=== PATIENT | female | born 1955 | race Caucasian/White ===

== ENCOUNTER 2016-12-03 14:31 | Emergency (ER) | payer OTHER ==
[~2016-12-03] VITALS: Ht 172.7 cm; Wt 66.7 kg
[2016-12-03] MEDS ORDERED: NKM (15:02)
--- NOTE | 2016-12-03 15:25 | Emergency Room Report ---
History of Present Illness General Chief Complaint: Animal Bite Source: Patient Present Illness HPI 61-year-old female presents emergency department complaining of By the progressive erythema and tenderness x2 days. Patient states she had some extra amoxicillin at home and she's been taking that however she has noticed that redness has become apparent and is now progressing. Patient reports 9/10 in severity pain about the area of the Bite. Patient states she's not she with her tetanus vaccination. She denies taking blood thinning medications. Patient denies history of immunocompromise. She denies fevers chills streaking of erythema up the arm, nausea or vomiting. Patient denies swollen tender lymph nodes. Denies CP, Palpitations, LOC, AMS, dizziness, Changes in Vision, Sensation, paresthesias, or a sudden severe headache. Allergies: Coded Allergies: No Known Allergies (Unverified , 12/03/16) Patient History Past Medical History: see triage record Past Surgical History: none Pertinent Family History: none Now: No Reviewed Nursing Documentation: PMH: Agreed, PSxH: Agreed Nursing Documentation-PMH Past Medical History: No History, Except For Hx Gastrointestinal Problems: Yes - Hernia, Hepatitis B/C Review of Systems All Other Systems: negative except mentioned in HPI Physical Exam Vital Signs Date Time Temp Pulse Resp B/P Pulse Ox O2 Delivery O2 Flow Rate FiO2 12/03/16 14:57 98.8 61 18 138/74 98 Room Air Sp02 EP Interpretation: reviewed, normal General Appearance: no apparent distress, alert, GCS 15, non-toxic Head: normocephalic, atraumatic Eyes: bilateral eye PERRL, bilateral eye normal inspection ENT: hearing grossly normal, normal pharynx, no angioedema, normal voice Neck: full range of motion, supple/symm/no masses Respiratory: chest non-tender, lungs clear, normal breath sounds, speaking full sentences Cardiovascular #1: regular rate, rhythm, no edema, normal capillary refill Cardiovascular #2: 2+ radial (R), 2+ radial (L) Rectal: deferred Musculoskeletal: back normal, gait/station normal, normal range of motion, inflammation - right hand about the distal wrist, fingers are not involved. , TTP Neurologic: alert, oriented x3, responsive, motor strength/tone normal, sensory intact, speech normal Psychiatric: judgement/insight normal, memory normal, mood/affect normal, no suicidal/homicidal ideation Skin: no rash, warm/dry, well hydrated, other - two puncture wounds to the right hand/wrist and two scratch/abrasions there is surrounding erythema that does not enter the forearm, there is no lymphangitis. TTP Lymphatic: no adenopathy Medical Decision Making PA Attestation Dr. Jenkins is my supervising Physician whom patient management has been discussed with. Diagnostic Impression: Primary Impression: Cat bite of right hand with infection Qualified Codes: S61.451A - Open bite of right hand, initial encounter; L08.9 - Local infection of the skin and subcutaneous tissue, unspecified; W55.01XA - Bitten by cat, initial encounter Additional Impression: Cellulitis Qualified Codes: L03.113 - Cellulitis of right upper limb ER Course Pt. presents to the ED c/o Cat bite to Right hand/wrist x 3 days with progressive erythema and TTP. tetanus not up to date, rabies on animal is UTD Ddx considered but are not limited to Cellulitis, rabies, fracture, neurovascular compromise of extremity. Vital signs: are WNL, pt. is afebrile H&PE are most consistent with dog bite, mild infection.- no evidence of lymphangitis. ORDERS: none required at this time, the diagnosis is clinical ED INTERVENTIONS: -Tetanus vaccination is administered. -Augmentin 875 PO -Motrin 600mg PO - Report taken by RN for animal bite. DISCHARGE: At this time pt. is stable for d/c to home. Will provide printed patient care instructions, and any necessary prescriptions. Care plan and follow up instructions have been discussed with the patient prior to discharge. * Augmentin Last Vital Signs Date Time Temp Pulse Resp B/P Pulse Ox O2 Delivery O2 Flow Rate FiO2 12/03/16 14:57 98.8 61 18 138/74 98 Room Air Disposition: HOME, SELF-CARE Condition: Stable Scripts Ibuprofen* (MOTRIN*) 600 Mg Tablet 600 MG ORAL THREE TIMES A DAY, #30 TAB 0 Refills Prov: Miriam Mitchell P.A. 12/03/16 Hydrocodone Bit/Acetaminophen 5-325* (NORCO 5-325 TABLET*) 1 Each Tablet 1 TAB ORAL Q6HR Y for For Pain, #4 TAB Prov: Miriam Mitchell P.A. 12/03/16 Amoxicillin/Potassium Clav 875-125* (AUGMENTIN 875-125 TABLET*) 1 Each Tablet 1 TAB ORAL TWICE A DAY for 7 Days, #14 TAB Prov: Miriam Mitchell 12/03/16 Patient Instructions: Animal Bite Additional Instructions: Take medications as directed. Follow up with PCP in 3-5 days Return sooner to ED if new symptoms occur, or current symptoms become worse. Do not drink alcohol, drive, or operate heavy machinery while taking [place] as this may cause drowsiness. - Please note that this Emergency Department Report was dictated using markedupreal estate assessor technology software, occasionally this can lead to erroneous entry secondary to interpretation by the dictation equipment. Miriam Mitchell Dec 03, 2016 15:25
[2016-12-03] MEDS ORDERED: AUGMENTIN 875-1 EAC1 ORAL (15:26)
[2016-12-03] MEDS ORDERED: NORCO 5-325 TA1 EAC1 ORAL (15:26)
[2016-12-03] MEDS ORDERED: IBUPROFEN600 MG ORAL (15:26)
[2016-12-03] MEDS ORDERED: Augmentin 875mg Tab ORAL ONE (15:30)
[2016-12-03] MEDS ORDERED: TdaP Vaccine 0.5ml Syr IM ONE (15:30)
[2016-12-03 15:36] VITALS: BP 129/79
== END 2016-12-03 15:39 | disposition home or self-care (01) ==
LOC: EMR 15:09
DX: S61.451A Open bite of right hand, initial encounter (principal); L03.113 Cellulitis of right upper limb; W55.01XA Bitten by cat, initial encounter; Y92.89 Other specified places as the place of occurrence of the external cause; Z23 Encounter for immunization
CPT/HCPCS: 90471; 90715; 96372; 99284

== ENCOUNTER 2016-12-14 16:25 | Inpatient (IN) | payer OTHER ==
[2016-12-14] VITALS (10 sets, daily range): BP systolic 109–155; BP diastolic 61–81
[~2016-12-14] VITALS: Ht 162.6 cm; Wt 66.7 kg
[~2016-12-14 16:25] MED LIST: AUGMENTIN 875-1 EAC1 ORAL; IBUPROFEN600 MG ORAL; NKM; NORCO 5-325 TA1 EAC1 ORAL
--- NOTE | 2016-12-14 17:38 | Emergency Room Report ---
History of Present Illness General Chief Complaint: Abdominal Pain Source: Patient Present Illness HPI This is a 61-year-old female who presented after increased lower abdominal pain. Patient had prior history of the right abdominal hernia. Patient states that her knee had become more prominent today. She reported having some episodes of vomiting. She was noted to have increased pain. Patient had been vomiting. She had recently been bitten by a feral cat to left hand. Allergies: Coded Allergies: No Known Allergies (Unverified , 12/03/16) Patient History Past Medical History: see triage record Past Surgical History: hysterectomy, other - rectal prolapse repair at [facility] Reviewed Nursing Documentation: PMH: Agreed, PSxH: Agreed Nursing Documentation-PMH Past Medical History: No History, Except For Hx Gastrointestinal Problems: Yes - Hernia, Hepatitis B/C, bowel dysfunction Review of Systems All Other Systems: negative except mentioned in HPI Physical Exam Vital Signs Date Time Temp Pulse Resp B/P Pulse Ox O2 Delivery O2 Flow Rate FiO2 12/14/16 16:32 96.1 50 20 174/73 99 Room Air Sp02 EP Interpretation: reviewed, normal General Appearance: normal inspection, alert, GCS 15, moderate distress, thin Head: atraumatic ENT: normal ENT inspection, hearing grossly normal, normal voice Neck: normal inspection, full range of motion, supple, no bony tend Respiratory: normal inspection, lungs clear, normal breath sounds, no respiratory distress, no retraction, no wheezing Cardiovascular #1: regular rate, rhythm, no edema Gastrointestinal: normal bowel sounds, non tender, soft, no guarding, hernia - right lower abdomen Genitourinary: no CVA tenderness Musculoskeletal: normal inspection, back normal, normal range of motion Neurologic: normal inspection, alert, oriented x3, responsive, automatic profile sander operator III-XII nml as tested, speech normal Psychiatric: normal inspection, judgement/insight normal, mood/affect normal Skin: normal inspection, normal color, no rash, other - multiple puncture wound to finger of left hand Medical Decision Making Diagnostic Impression: Primary Impression: Incarcerated hernia Additional Impression: Cat bite of hand ER Course Patient presented for abdominal pain. Differential diagnoses included ischemic bowel, appendicitis, perforated viscus, abdominal aortic aneurysm, inferior myocardial infarction, viral gastroenteritis Because of complexity of patient's case laboratory testing and imaging studies were ordered.The patient was given IV antiemetics she started on IV fluids. CT abdomen pelvis read by radiology showed right inguinal hernia with bowel obstruction and loop of bowel in the right inguinal hernia which has some fluid- filled bowel . She was given antibiotics for coverage for recent cat bite to her left hand. Attempted manual reduction of the hernia without success. The patient was given morphine for pain as well as Zofran. She was given IV Unasyn. Dr. Mendes was contacted for surgical consult. Dr. Gonzalo Cancino was contacted for inpatient management. The patient will likely need antibiotics for Bite in addition to management of hernia. Labs Test 12/14/16 17:00 White Blood Count 10.7 K/UL (4.8-10.8) Red Blood Count 3.99 M/UL (4.20-5.40) Hemoglobin 13.7 G/DL (12.0-16.0) Hematocrit 39.4 % (37.0-47.0) Mean Corpuscular Volume 99 FL (80-99) Mean Corpuscular Hemoglobin 34.4 PG (27.0-31.0) Mean Corpuscular Hemoglobin Concent 34.8 G/DL (32.0-36.0) Red Cell Distribution Width 12.5 % (11.6-14.8) Platelet Count 265 K/UL (150-450) Mean Platelet Volume 7.6 FL (6.5-10.1) Neutrophils (%) (Auto) 69.9 % (45.0-75.0) Lymphocytes (%) (Auto) 21.5 % (20.0-45.0) Monocytes (%) (Auto) 6.5 % (1.0-10.0) Eosinophils (%) (Auto) 0.7 % (0.0-3.0) Basophils (%) (Auto) 1.4 % (0.0-2.0) Prothrombin Time 10.7 SEC (9.30-11.50) Prothromb Time International Ratio 1.1 (0.9-1.1) Activated Partial Thromboplast Time 25 SEC (23-33) Sodium Level 140 mEQ/L (135-145) Potassium Level 3.8 mEQ/L (3.4-4.9) Chloride Level 100 mEQ/L (98-107) Carbon Dioxide Level 22 mEQ/L (20-30) Anion Gap 18 (5-15) Blood Urea Nitrogen 7 mg/dL (7-23) Creatinine 0.6 mg/dL (0.5-0.9) Estimat Glomerular Filtration Rate > 60 mL/min (>60) Glucose Level 137 mg/dL (74-106) Calcium Level 9.6 mg/dL (8.6-10.2) Total Bilirubin 0.2 mg/dL (0.0-1.2) Aspartate Amino Transf (AST/SGOT) 17 U/L (5-40) Alanine Aminotransferase (ALT/SGPT) 12 U/L (3-33) Alkaline Phosphatase 62 U/L (35-104) Total Protein 7.1 g/dL (6.6-8.7) Albumin 4.0 g/dL (3.5-5.2) Globulin 3.1 g/dL Albumin/Globulin Ratio 1.2 (1.0-2.7) Lipase 12 U/L (< 60) EKG Diagnostic Results Rate: bradycardiac Rhythm: NSR ST Segments: other - s Rhythm Strip Diag. Results EP Interpretation: yes Rhythm: NSR, no PVC's, no ectopy Last Vital Signs Date Time Temp Pulse Resp B/P Pulse Ox O2 Delivery O2 Flow Rate FiO2 12/14/16 16:32 96.1 50 20 174/73 99 Room Air Status: unchanged Disposition: ADMITTED INPATIENT Condition: Serious Santiago Baker December 14, 2016 17:38
[2016-12-14] MEDS ORDERED: Famotidine 20 MG/ 2ML VIAL IVP ONE (17:45)
[2016-12-14] MEDS ORDERED: Ampicillin/Sulbactam Sod 3 GM in NS 110 ML IVPB ONE (17:45)
[2016-12-14 17:49] LABS: BASOPHILS % (AUTO) 1.4 % (0.0-2.0); EOSINOPHILS % (AUTO) 0.7 % (0.0-3.0); LYMPHOCYTES % (AUTO) 21.5 % (20.0-45.0); MEAN CORPUSCULAR HEMOGLOBIN 34.4 PG (27.0-31.0); MEAN CORPUSCULAR HGB CONC 34.8 G/DL (32.0-36.0); MEAN CORPUSCULAR VOLUME 99 FL (80-99); MEAN PLATELET VOLUME 7.6 FL (6.5-10.1); MONOCYTES % (AUTO) 6.5 % (1.0-10.0); NEUTROPHILS % (AUTO) 69.9 % (45.0-75.0); PLATELET COUNT 265 K/UL (150-450); RED BLOOD COUNT 3.99 M/UL (4.20-5.40); RED CELL DISTRIBUTION WIDTH 12.5 % (11.6-14.8); WHITE BLOOD COUNT 10.7 K/UL (4.8-10.8)
[2016-12-14] MEDS ORDERED: Unasyn 3gm Inj ONE (17:51)
[2016-12-14 17:57] LABS: INR 1.1 (0.9-1.1); PROTHROMBIN TIME 10.7 SEC (9.30-11.50)
[2016-12-14] MEDS ORDERED: Morphine Sulfate 4mg/ml Inj IVP ONE (18:00)
[2016-12-14 18:06] LABS: ALANINE AMINOTRANSFERASE 12 U/L (3-33); ALBUMIN/GLOBULIN RATIO 1.2 (1.0-2.7); ANION GAP 18 (5-15); ASPARTATE AMINO TRANSFERASE 17 U/L (5-40); CALCIUM 9.6 mg/dL (8.6-10.2); CARBON DIOXIDE 22 mEQ/L (20-30); CHLORIDE 100 mEQ/L (98-107); CREATININE 0.6 mg/dL (0.5-0.9); GLOMERULAR FILTRATION RATE > 60 mL/min (>60); HEMOLYSIS 8; LIPASE 12 U/L (< 60); POTASSIUM 3.8 mEQ/L (3.4-4.9); SODIUM 140 mEQ/L (135-145); TOTAL PROTEIN 7.1 g/dL (6.6-8.7)
[2016-12-14 20:01] LABS: APPEARANCE,URINE CLEAR; KETONES,URINE 3+ (NEGATIVE); LEUKOCYTE ESTERASE ,URINE NEGATIVE (NEGATIVE); NITRITE,URINE NEGATIVE (NEGATIVE); PH,URINE 7 (4.5-8.0); PROTEIN,URINE NEGATIVE (NEGATIVE); UROBILINOGEN,URINE NORMAL MG/DL (0.0-1.0)
--- NOTE | 2016-12-14 20:56 | Pre-Procedure Note/Attestation ---
Pre-Procedure Note/Attestation Complete Prior to Procedure Planned Procedure: right Procedure Narrative: Right inguinal herniorrhaphy and release of strangulation Indications for Procedure Pre-Operative Diagnosis: Strangulated right inguinal hernia with bowel obstruction Attestation I attest that I discussed the nature of the procedure; its benefits; risks and complications; and alternatives (and the risks and benefits of such alternatives ), prior to the procedure, with the patient (or the patient's legal retail account representative). I attest that, if there was a reasonable possibility of needing a blood transfusion, the patient (or the patient's legal retail account representative) was given the [place] Department of Health Services standardized written summary, pursuant to the Raimundo Notus Blood Safety Act ([place] Health and Safety Code # 1645, as amended). I attest that I re-evaluated the patient just prior to the surgery and that there has been no change in the patient's H&P, except as documented below: TONY STANLEY December 14, 2016 20:56
[2016-12-14] MEDS ORDERED: Sterile Water Irrig 1000ml IRRIG ONE (21:00)
[2016-12-14] MEDS ORDERED: Midazolam 2mg/2ml Inj ONE (21:00)
[2016-12-14] MEDS ORDERED: Zemuron 50mg/5ml Inj IV ONE (21:00)
[2016-12-14] MEDS ORDERED: Glycopyrrolate 0.2mg/ml 1ml Vial ONE (21:00)
[2016-12-14] MEDS ORDERED: Ketorolac 30mg Inj ONE (21:00)
[2016-12-14] MEDS ORDERED: NS Irrig 1000ml ONE (21:00)
[2016-12-14] MEDS ORDERED: LR 1000ml ONE (21:00)
[2016-12-14] MEDS ORDERED: Neostigmine 1mg/ml 10ml Inj ONE (21:00)
[2016-12-14] MEDS ORDERED: Succinylcholine 20mg/ml 10ml vial ONE (21:00)
[2016-12-14] MEDS ORDERED: fentaNYL 100 mcg/2 mL IV ONE (21:00)
[2016-12-14] MEDS ORDERED: Propofol 10mg/ml 20ml IV ONE (21:00)
[2016-12-14] MEDS ORDERED: Bupivacaine 0.25% Inj 30ml INJ ONE (21:32)
--- NOTE | 2016-12-14 21:51 | Anethesia Preoperative Eval ---
Anesthesia Pre-op PMH/ROS General Date of Evaluation: December 14, 2016 Time of Evaluation: 20:52 Anesthesiologist: Arnulfo ASA Score: ASA 2 Mallampati Score Class I : Soft palate, uvula, fauces, pillars visible Class II: Soft palate, uvula, fauces visible Class III: Soft palate, base of uvula visible Class IV: Only hard plate visible Mallampati Classification: Class II Surgeon: Cinthya Diagnosis: R incarcerated hernia Surgical Procedure: Repair of incarcerated hernia Anesthesia History: none Social History: current smoker Family History: no anesthesia problems Allergies: Coded Allergies: No Known Allergies (Unverified , 12/03/16) Medications: see eMAR Past Medical History Cardiovascular: Reports: HTN, Denies: CAD, DC, arrhythmia, other, valve dz Pulmonary: 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, Denies: CASSANDRA, asthma, other Gastrointestinal/Genitourinary: Reports: GERD, Denies: CRI, ESRD, other Neurologic/Psychiatric: Denies: CVA, TIA, dementia, depression/anxiety, other Endocrine: Denies: DM, hypothyroidism, other, steroids HEENT: Denies: [place] (L), [place] (R), cataract (L), cataract (R), glaucoma, other Hematology/Immune: Denies: DVT, anemia, bleeding disorder, other Musculoskeletal/Integumentary: Reports: DJD, Denies: DDD, OA, RA, edema, other PMH Narrative: as above admitted with acute abdominal pain vomiting PSxH Narrative: hysterectomy, rectal prolapse Anesthesia Pre-op Phys. Exam Physician Exam Last Vital Signs Date Time Temp Pulse Resp B/P Pulse Ox O2 Delivery O2 Flow Rate FiO2 12/14/16 21:09 97.0 54 14 151/79 99 Room Air Constitutional: NAD Neurologic: CN 2-12 intact Cardiovascular: RRR, no M/R/G Respiratory: CTA Gastrointestinal: other - some tenderness Airway Exam Mallampati Score: Class II MO: full Neck: flexible ROM: full Teeth: missing Dentures: lower, upper Anesthesia Pre-op A/P Labs Hematology Test 12/14/16 17:00 White Blood Count 10.7 K/UL (4.8-10.8) Red Blood Count 3.99 M/UL (4.20-5.40) L Hemoglobin 13.7 G/DL (12.0-16.0) Hematocrit 39.4 % (37.0-47.0) Mean Corpuscular Volume 99 FL (80-99) Mean Corpuscular Hemoglobin 34.4 PG (27.0-31.0) H Mean Corpuscular Hemoglobin Concent 34.8 G/DL (32.0-36.0) Red Cell Distribution Width 12.5 % (11.6-14.8) Platelet Count 265 K/UL (150-450) Mean Platelet Volume 7.6 FL (6.5-10.1) Neutrophils (%) (Auto) 69.9 % (45.0-75.0) Lymphocytes (%) (Auto) 21.5 % (20.0-45.0) Monocytes (%) (Auto) 6.5 % (1.0-10.0) Eosinophils (%) (Auto) 0.7 % (0.0-3.0) Basophils (%) (Auto) 1.4 % (0.0-2.0) Coagulation Test 12/14/16 17:00 Prothrombin Time 10.7 SEC (9.30-11.50) Prothromb Time International Ratio 1.1 (0.9-1.1) Activated Partial Thromboplast Time 25 SEC (23-33) Chemistry Test 12/14/16 17:00 Sodium Level 140 mEQ/L (135-145) Potassium Level 3.8 mEQ/L (3.4-4.9) Chloride Level 100 mEQ/L (98-107) Carbon Dioxide Level 22 mEQ/L (20-30) Anion Gap 18 (5-15) H Blood Urea Nitrogen 7 mg/dL (7-23) Creatinine 0.6 mg/dL (0.5-0.9) Estimat Glomerular Filtration Rate > 60 mL/min (>60) Glucose Level 137 mg/dL (74-106) H Calcium Level 9.6 mg/dL (8.6-10.2) Total Bilirubin 0.2 mg/dL (0.0-1.2) Aspartate Amino Transf (AST/SGOT) 17 U/L (5-40) Alanine Aminotransferase (ALT/SGPT) 12 U/L (3-33) Alkaline Phosphatase 62 U/L (35-104) Total Protein 7.1 g/dL (6.6-8.7) Albumin 4.0 g/dL (3.5-5.2) Globulin 3.1 g/dL Albumin/Globulin Ratio 1.2 (1.0-2.7) Lipase 12 U/L (< 60) Studies Pre-op Studies: EKG - NSR Risk Assessment & Plan Assessment: ASA 2E Plan: GA with ETT Status Change Before Surgery: No Pre-Antibiotics Drug: As scheduled see ER record SUZE AVERY M.D. December 14, 2016 21:51
[2016-12-14] MEDS ORDERED: LR 1000ml 1,000 ML IVLG SCH (21:52)
[2016-12-14] MEDS ORDERED: DiphenhydrAMINE 50mg/ml Inj IVP PRN (22:00)
[2016-12-14] MEDS ORDERED: Hydromorphone 0.5mg/0.5ml inj IVP PRN ×2 (22:00→22:45)
[2016-12-14] MEDS ORDERED: fentaNYL 100 mcg/2 mL IV PRN (22:00)
[2016-12-14] MEDS ORDERED: Ketorolac 30mg Inj IV PRN (22:00)
[2016-12-14] MEDS ORDERED: Midazolam 2mg/2ml Inj IVP PRN (22:00)
--- NOTE | 2016-12-14 22:22 | Immediate Post-Op Evaluation ---
Immediate Post-Op Evalulation Immediate Post-Op Evalulation Procedure: Repair of R incarcerated femoral Hernia Date of Evaluation: December 14, 2016 Time of Evaluation: 22:21 IV Fluids: 800 Blood Products: none Estimated Blood Loss: min Urinary Output: 600 Blood Pressure Systolic: 134 Blood Pressure Diastolic: 68 Pulse Rate: 68 Respiratory Rate: 20 O2 Sat by Pulse Oximetry: 98 Temperature (Fahrenheit): 97.6 Pain Score (1-10): 2 Nausea: No Vomiting: No Complications none Patient Status: reacts, patent, extubated, none Hydration Status: adequate SUZE AVERY M.D. December 14, 2016 22:22
[2016-12-14] MEDS ORDERED: Acetaminophen 650 MG SUPP RECTAL PRN (22:45)
[2016-12-14] MEDS ORDERED: HYDROmorphone 1mg/ml Carpuject IVP PRN (22:45)
[2016-12-15] VITALS: BP 124/67
[2016-12-15] MEDS: D5 1/2NS w/KCl 20mEq 1,000 ML IV SCH ×2 (01:58→10:54)
[2016-12-15] MEDS ORDERED: ZYRTEC10 MG ORAL (02:30)
[2016-12-15] MEDS ORDERED: OMEPRAZOLE40 M1 ORAL (02:30)
[2016-12-15] MEDS ORDERED: NAPROXEN SODIU550 M1 ORAL (02:30)
--- NOTE | 2016-12-15 02:59 | Consultation ---
DATE OF CONSULTATION: 12/14/2016 PREOPERATIVE CONSULTATION REQUESTING PHYSICIAN: ER physician. REASON FOR CONSULTATION: Strangulated hernia. History Of Present Illness: This is a 61-year-old female, who presented to emergency room complaining of pain in the right groin and vomiting. She stated that she had right inguinal hernia since October 2006, but today at 2:30 in the afternoon, the lump has been very hard and painful and he has vomited a few times. She has had a normal bowel movement this morning. PAST MEDICAL HISTORY: She denies allergies, asthma, diabetes, hypertension, and renal diseases. She has a history of bradycardia. PAST SURGICAL HISTORY: Repair of the rectal prolapse, hysterectomy and batcher operator surgery. MEDICATIONS: She is on naproxen and proton pump inhibitor. SOCIAL HISTORY: The patient is a 61-year-old female, single without children. 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 She smokes about three-quarter to one pack of cigarettes per day, but denies drinking. REVIEW OF SYSTEMS: Noncontributory. PHYSICAL EXAMINATION: GENERAL: The patient appeared to be a well-developed and well-nourished 61-year-old female, lying on the gurney, complaining of pain in the right groin, but not abdominal pain. HEENT: Head is normocephalic and atraumatic. Eyes, pupils are equal, round, and reactive to light. Mouth is clear, but edentulous. NECK: There is no palpable thyromegaly or adenopathy. CHEST: Clear to auscultation and percussion. HEART: There is no gallop or murmur. S1 and S2 are within normal limits. ABDOMEN: Soft and flat. Not tender. There is no palpable organomegaly and bowel sounds are audible. GENITAL: She has a scar of the transverse suprapubic incision. She has an irreducible and tender right inguinal hernia. EXTREMITIES: Within normal limits. LABORATORY AND DIAGNOSTIC DATA: A CAT scan of the abdomen has been interpreted as a hernia with bowel obstruction. ASSESSMENT: Incarcerated right inguinal hernia with bowel obstruction. PLAN: The patient requires emergency right inguinal herniorrhaphy. The risks and benefits have been explained to her. She understood and granted consent. Miguel Angel Mendes M.D. DR: ERIN JOB#: [id number] CC:
[2016-12-15 04:10] VITALS: BP 103/56
[2016-12-15] MEDS: ceFAZolin sod 1 GM in D5W 55 ML IV SCH ×2 (06:25→14:00)
[2016-12-15] MEDS: Metoclopramide 10mg/2ml Inj IVP SCH ×2 (06:27→14:00)
[2016-12-15 08:08] VITALS: BP 100/55
--- NOTE | 2016-12-15 08:19 | Operative Note - Dictated ---
DATE OF OPERATION: 12/14/2016 PREOPERATIVE DIAGNOSIS: Strangulated right inguinal hernia. POSTOPERATIVE DIAGNOSIS: Strangulated right femoral hernia. OPERATION: 1. Release of strangulation. 2. Right femoral herniorrhaphy with application of mesh plug. 3. Blockage of the nerves to the right groin for the postoperative pain control. COMPLICATION: None. SURGEON: Miguel Angel Mendes M.D. RESEARCH SOFTWARE ENGINEER: None. ANESTHESIA: General with endotracheal tube. ANESTHESIOLOGIST: Rajesh Arredondo M.D. Indication: This is a 61-year-old female, who presented with pain and lump in the right groin. She stated that she has had a hernia in the right groin since 10/2016, but since 2:30 today the lump has been enlarged, hard and painful and she has been vomiting. Physical examination showed irreducible and tender hernia in the right groin, which initially it was felt that was above the inguinal ligament, but during the surgery it was noticed that it was below the inguinal ligament. This hernia was irreducible and tender. A CAT scan has been performed, which has shown small bowel obstruction. DESCRIPTION OF PROCEDURE: The patient was placed supine on the operating table. After general anesthesia with endotracheal tube, the right groin was properly prepped and draped. A transverse inguinal incision was given and was carried sharply through the subcutaneous tissue. The hernia sac was reached and was gradually dissected and isolated. It was noticed that the sac was protruding below the inguinal ligament and through the femoral canal. The hernia sac was incised and a large amount of bloody fluid was drained. Exploration showed a small loop of the small bowel, which was very dusky. Initially, the neck of the hernia was dilated with the incision of the ring at the medial side and the bowel was packed in the warm water and gradually the color changed to pink and so it was gradually reduced into the intraperitoneal cavity and the hernia defect was exposed. The hernia sac was completely dissected and isolated and then it was transligated with 0 silk. The large mesh plug was selected and was placed in the femoral condyle. This plug was secured in place with multiple interrupted suture of 2-0 Prolene. A suture was not placed on the lateral side of the condyle. After the application of the plug and incision was thoroughly irrigated with antibiotic solution and then it was infiltrated with total of 20 mL of Marcaine 0.25%. The nerves to the right groin were blocked with infiltration of 10 mL of Marcaine for the postoperative pain control port. After this repair, the subcutaneous tissue was approximated in 2 layers with 3-0 plain catgut and the skin incision was approximated with running subcuticular suture of 4-0 chromic. The patient tolerated the procedure very well and was transferred to recovery room in stable condition and extubated. The sponge and needle count were correct. Estimated blood loss was 20 mL. Condition of the patient at the end of the procedure is stable. Miguel Angel Mendes M.D. DR: MIESHA JOB#: [id number] CC:
--- NOTE | 2016-12-15 11:22 | 48 Hour Post Anesthesia Eval ---
Post Anesthesia Evaluation Procedure: Repair of R incarcerated femoral Hernia Date of Evaluation: December 15, 2016 Time of Evaluation: 11:21 Blood Pressure Systolic: 100 0: 55 Pulse Rate: 49 Respiratory Rate: 20 Temperature (Fahrenheit): 98.4 O2 Sat by Pulse Oximetry: 97 Airway: patent Nausea: No Vomiting: No Pain Intensity: 1 Hydration Status: adequate Cardiopulmonary Status: at baseline Mental Status/LOC: patient returned to baseline Post-Anesthesia Complications: 0 Follow-up care needed: N/A - further care as per primary team LASHONDA REDDY M.D. December 15, 2016 11:22
--- NOTE | 2016-12-15 11:53 | Diagnostic Imaging Report ---
Indications: Right lower quadrant abdominal pain, nausea and vomiting, history of hernia Technique: Continuous helical CT imaging of the abdomen and pelvis was performed with automatic exposure control following administration of nonionic IV contrast only, on a Siemens sensation [address] scanner. Axial and coronal images were reconstructed at 5 mm slice thickness. No oral contrast was administered per requesting physician's order, presumably due to nausea and vomiting. CTDI volume(s): 16 mGy Total DLP: 803 mGy-cm Findings: Comparison: None Large hiatal hernia. Mid to distal small bowel diffusely dilated and fluid-filled air-fluid levels to point of entry of small bowel loops into right inguinal hernia. Incorporated loops of fluid-filled without obvious mural thickening, but with adjacent fluid. Small bowel from the point of exit distally collapsed. Appendix not identified. Gas and feces throughout nondilated colon to rectum. No obvious mural thickening, adjacent stranding, extraluminal gas or additional fluid collections. Periportal low attenuation throughout liver. 2 small nodular foci of increased attenuation/enhancement in right hepatic lobe, segments 7 and 8 respectively. Questionable third similar focus in segment2. Inferior vena cava, hepatic veins distended. Suggestion of dilation of the main pancreatic duct. No associated stone or mass identified. 5 cm circumscribed low-attenuation mass emanates exophytically from the interpolar cortex of left kidney. Scattered arterial mural calcifications without obvious flow-limiting stenosis or occlusion. Uterus absent. Neither ovary demonstrated. Urinary bladder distended. Remainder visualized abdominopelvic anatomy demonstrates no other obvious acute abnormality. Increased interstitial markings in both lung bases. 4 and 5 mm pleural-based noncalcified nodules in the lateral basal segment of right pulmonary lower lobe. 7 mm noncalcified nodule in the posterior basal segment left lower lobe. 7 mm noncalcified nodule in the anterior basal segment of left lower lobe. 6 mm noncalcified nodule lateral basal segment left lower lobe. Multilevel disc space narrowing with marginal osteophyte formation lumbar, lower thoracic spine, former with vacuum phenomenon. Impression: Small bowel obstruction secondary to incorporation of small bowel and right inguinal hernia, indicating incarceration. Free fluid in the hernia sac suggesting possibility of early strangulation. Periportal edema, nonspecific, may be secondary to elevated right heart pressure (evidence of this) or acute hepatitis No other evidence of acute abdominopelvic disease Nonspecific small mildly enhancing liver lesions. Diagnostic possibilities include transient arterial portal shunting, focal nodular hyperplasia, hemangiomas, adenomas, metastases. Dedicated multiphasic CT scan or MRI without and with contrast/gadolinium, liver mass protocol, recommended for further evaluation. Large hiatal hernia Left renal cyst Arteriosclerosis Previous hysterectomy Urinary bladder distention Bilateral lung base nodules--granulomatous versus neoplastic. Dedicated contrast-enhanced CT scan the thorax recommended for completion of evaluation. Degenerative spondylosis Critical results discussed with Dr. Baker, ER physician, by telephone 12/14/2016 approximately 1938
[2016-12-15 12:00] VITALS: BP 100/55
--- NOTE | 2016-12-15 13:13 | General Surgery Progress Note ---
General Surgery-Progress Note Subjective Symptoms: improved, passing flatus Objective Last 24 Hour Vital Signs Date Time Temp Pulse Resp B/P Pulse Ox O2 Delivery O2 Flow Rate FiO2 12/15/16 12:00 98.2 47 20 100/55 Nasal Cannula 12/15/16 11:22 49 20 97 12/15/16 08:08 98.4 49 20 100/55 97 Nasal Cannula 12/15/16 06:27 98.2 12/15/16 04:10 98.2 42 19 103/56 97 Nasal Cannula 12/15/16 00:00 99.0 46 19 124/67 96 Nasal Cannula 12/14/16 23:58 99.0 12/14/16 23:09 99.0 43 20 137/64 100 Nasal Cannula 2.0 12/14/16 23:03 99.0 45 20 137/64 100 Nasal Cannula 2.0 12/14/16 22:52 67 20 130/65 100 Nasal Cannula 2.0 12/14/16 22:41 48 20 130/65 100 Nasal Cannula 2.0 12/14/16 22:25 47 20 117/81 100 Nasal Cannula 2.0 12/14/16 22:22 68 20 98 12/14/16 22:21 57 20 109/61 100 Simple Mask 8.0 12/14/16 22:16 98.1 67 20 130/64 100 Simple Mask 8.0 12/14/16 21:09 97.0 54 14 151/79 99 Room Air 12/14/16 20:30 97.0 54 14 151/79 99 Room Air 12/14/16 19:10 44 19 145/71 12/14/16 18:00 50 18 155/71 98 Room Air 12/14/16 16:32 96.1 50 20 174/73 99 Room Air I&O Intake and Output 12/14/16 12/15/16 19:00 07:00 Intake Total 800 ml Output Total 800 ml Balance 0 ml Intake IV Total 800 ml Output Urine Total 800 ml # Voids 2 Dressing: dry Respiratory: clear Abdomen: soft, flat, non-tender, present bowel sounds Extremities: no edema, no tenderness Laboratory Tests Test 12/14/16 17:00 12/14/16 19:10 White Blood Count 10.7 K/UL (4.8-10.8) Red Blood Count 3.99 M/UL (4.20-5.40) L Hemoglobin 13.7 G/DL (12.0-16.0) Hematocrit 39.4 % (37.0-47.0) Mean Corpuscular Volume 99 FL (80-99) Mean Corpuscular Hemoglobin 34.4 PG (27.0-31.0) H Mean Corpuscular Hemoglobin Concent 34.8 G/DL (32.0-36.0) Red Cell Distribution Width 12.5 % (11.6-14.8) Platelet Count 265 K/UL (150-450) Mean Platelet Volume 7.6 FL (6.5-10.1) Neutrophils (%) (Auto) 69.9 % (45.0-75.0) Lymphocytes (%) (Auto) 21.5 % (20.0-45.0) Monocytes (%) (Auto) 6.5 % (1.0-10.0) Eosinophils (%) (Auto) 0.7 % (0.0-3.0) Basophils (%) (Auto) 1.4 % (0.0-2.0) Prothrombin Time 10.7 SEC (9.30-11.50) Prothromb Time International Ratio 1.1 (0.9-1.1) Activated Partial Thromboplast Time 25 SEC (23-33) Sodium Level 140 mEQ/L (135-145) Potassium Level 3.8 mEQ/L (3.4-4.9) Chloride Level 100 mEQ/L (98-107) Carbon Dioxide Level 22 mEQ/L (20-30) Anion Gap 18 (5-15) H Blood Urea Nitrogen 7 mg/dL (7-23) Creatinine 0.6 mg/dL (0.5-0.9) Estimat Glomerular Filtration Rate > 60 mL/min (>60) Glucose Level 137 mg/dL (74-106) H Calcium Level 9.6 mg/dL (8.6-10.2) Total Bilirubin 0.2 mg/dL (0.0-1.2) Aspartate Amino Transf (AST/SGOT) 17 U/L (5-40) Alanine Aminotransferase (ALT/SGPT) 12 U/L (3-33) Alkaline Phosphatase 62 U/L (35-104) Total Protein 7.1 g/dL (6.6-8.7) Albumin 4.0 g/dL (3.5-5.2) Globulin 3.1 g/dL Albumin/Globulin Ratio 1.2 (1.0-2.7) Lipase 12 U/L (< 60) Urine Color Pale yellow Urine Appearance Clear Urine pH 7 (4.5-8.0) Urine Specific Garvin 1.005 (1.005-1.035) Urine Protein Negative (NEGATIVE) Urine Glucose (UA) Negative (NEGATIVE) Urine Ketones 3+ (NEGATIVE) H Urine Occult Blood Negative (NEGATIVE) Urine Nitrite Negative (NEGATIVE) Urine Bilirubin Negative (NEGATIVE) Urine Urobilinogen Normal MG/DL (0.0-1.0) Urine Leukocyte Esterase Negative (NEGATIVE) Assessment Additional Comments S/P strangulated right femoral hernia with bowel obstruction Plan Additional Comments Discharge to home TONY STANLEY December 15, 2016 13:13
--- NOTE | 2016-12-15 13:15 | Discharge Instructions ---
Discharge Instructions Discharge Instructions Follow up with: my office in one week Diet: regular Resume Normal Activity?: Yes Activity: as tolerated For Surgical Patients Clean and Dry: other - will be removed by surgeon May shower: Yes For Congestive Heart Failure Reminder Report to your physician any weight gain of 5 pounds or more in one week. TONY STANLEY December 15, 2016 13:15
[2016-12-15] MEDS ORDERED: PERI-COLACE TA1 EACH PO (13:54)
[2016-12-15] MEDS ORDERED: TRAMADOL HCL50 MG ORAL (13:54)
[2016-12-15] MEDS ORDERED: CEPHALEXIN500 MG ORAL (13:54)
--- NOTE | 2016-12-15 19:00 | Cardiology Report ---
APPROVED REPORT EKG Measurement Heart [id number] Sinus bradycardia with premature supraventricular complexes Incomplete right bundle branch block Borderline ECG
--- NOTE | 2016-12-16 08:34 | Discharge Summary ---
Discharge Summary Hospital Course Date of Admission December 14, 2016 at 20:52 Date of Discharge December 15, 2016 at 14:17 Admitting Diagnosis incarcerated hernia HPI Misti Interiano is a 61 year old female who was admitted on December 14, 2016 at 20: 52 for Incarcerated Hernia Hospital Course dc summary #[id number] Discharge Medications Continued Medications: Cephalexin* (Keflex*) 500 Mg Capsule 500 MG ORAL EVERY 6 HOURS, #20 CAP Sennosides/Docusate Sodium (Raisa-Colace Tablet) 1 Each Tablet 1 EACH PO TID, TAB Tramadol Hcl* (Ultram*) 50 Mg Tablet 50 MG ORAL Q6H PRN for For Pain, #30 TAB 0 Refills Discharge Condition Upon Discharge: stable Discharge Disposition Patient was discharged to Home (01) Discharge Diagnoses: Discharge Instructions Discharge Instructions Follow up with: my office in one week Activity: as tolerated Special Instructions I have been assigned to complete a D/C Summary on this account. I was not involved in the patient management For Surgical Patients Clean and Dry: other - will be removed by surgeon May shower: Yes Anne-Marie Pacheco NP ([facility]) December 16, 2016 08:34
--- NOTE | 2016-12-17 00:59 | Discharge Summary 2 SIG ---
DATE OF ADMISSION: 12/14/2016 DATE OF DISCHARGE: 12/15/2016 REASON FOR ADMISSION: 61-year-old female presented to emergency room with lower abdominal pain. The patient had a history of right abdominal hernia in the past. She reported vomiting. She reported increased pain. She also recently was bitten by a feral cat on the left hand. Workup in the emergency room revealed no fever and no leukocytosis. However, CT of the abdomen and pelvis revealed small bowel obstruction secondary to incarceration of small bowel and right inguinal hernia indicating incarceration. Free fluid in the hernia sac was suggesting possibility of obvious strangulation. The patient was started on the IV fluids. Antiemetic provided. Antibiotics started. Pain management provided. Surgeon was consulted emergently. ADMITTING DIAGNOSES: 1. Incarcerated hernia with bowel obstruction. 2. Abdominal pain. 3. Cat bite. HOSPITAL COURSE: The surgeon seen the patient. Emergency surgery done on 12/14/2016. The patient status post release of strangulation, herniorrhaphy with application of mesh. Pain management provided. The patient was able to tolerate diet. Dressing clean, dry, and intact. Surgeon seen the patient and cleared the patient for discharge. The patient was able to ambulate, voided freely, had bowel movement, and tolerated diet. Follow up with doctor as outpatient. Prescription given for antibiotics to cover cat bite. Due to the rapid and unexpected improvement in patient condition , the patient was discharged in one day. DISCHARGE DIAGNOSES: 1. Strangulated right Femural hernia with bowel obstruction. 2. Status post right herniorrhaphy with the application of mesh plug. 3. Status post cat bite. DISCHARGE MEDICATIONS: See medication reconciliation list. DISCHARGE INSTRUCTIONS: The patient was discharged home. Follow up with the surgeon as outpatient. Miguel Angel Mendes M.D. I have been assigned to dictate discharge summary on this account and I was not involved in the patient's management. Anne-Marie Pacheco ([facility]tein) N.P. DR: BARI JOB#: [id number] CC: APOLLO
== END 2016-12-15 14:17 | disposition home or self-care (01) | DRG 228 ==
LOC: EMR 17:12 → EDBEDREQ 19:50 → SUR 20:51 → 3E 20:52 → UNDOADMIN 12-15 10:10
PROC: 0YU70JZ Supplement Right Femoral Region with Synthetic Substitute, Open Approach (ICD-10-PCS; principal; 2016-12-14 21:30)
DX: K41.30 Unilateral femoral hernia, with obstruction, without gangrene, not specified as recurrent (principal); F17.200 Nicotine dependence, unspecified, uncomplicated; S61.452A Open bite of left hand, initial encounter; W55.01XA Bitten by cat, initial encounter
CPT/HCPCS: 36415; 74177; 80053; 81003; 83690; 85025; 85610; 85730; 86850; 86900; 86901; 93005; J2250; J2405; J2710

== ENCOUNTER 2017-03-26 09:05 | Emergency (ER) | payer OTHER ==
[~2017-03-26] VITALS: Ht 172.7 cm; Wt 63.5 kg
[~2017-03-26 09:05] MED LIST changes: +CEPHALEXIN500 MG ORAL; +NAPROXEN SODIU550 M1 ORAL; +OMEPRAZOLE40 M1 ORAL; +PERI-COLACE TA1 EACH PO; +TRAMADOL HCL50 MG ORAL; +ZYRTEC10 MG ORAL
[2017-03-26 09:27] VITALS: BP 117/73
[2017-03-26] MEDS ORDERED: KEFLEX500 MG ORAL (09:38)
[2017-03-26 09:45] VITALS: BP 117/73
--- NOTE | 2017-03-26 09:55 | Emergency Room Report ---
History of Present Illness General Chief Complaint: Pain Source: Patient Present Illness HPI Patient present with complaints of right leg discomfort Patient reports history of varicose veins Feels that there is irritation of that area for the past several days Patient reports mild swelling in the area Denies any other fall or trauma denies any pelvic pain Denies any chest pain or shortness of breath denies any difficulty ambulating feels that elevating the leg does improve the symptoms Allergies: Coded Allergies: COPPER (Verified Allergy, Unknown, 12/15/16) Contact dermatitis Patient History Past Medical History: see triage record Pertinent Family History: none Reviewed Nursing Documentation: PMH: Agreed, PSxH: Agreed Nursing Documentation-PMH Hx Cardiac Problems: Yes - Bradycardia Hx Cancer: No Hx Gastrointestinal Problems: Yes - Hernia Hx Neurological Problems: No Review of Systems All Other Systems: negative except mentioned in HPI Physical Exam Vital Signs Date Time Temp Pulse Resp B/P Pulse Ox O2 Delivery O2 Flow Rate FiO2 03/26/17 09:08 97.7 60 20 144/74 98 Room Air Sp02 EP Interpretation: reviewed, normal General Appearance: well appearing, no apparent distress Head: normocephalic, atraumatic Eyes: bilateral eye EOMI, bilateral eye PERRL ENT: normal pharynx, no angioedema Neck: supple Respiratory: lungs clear, normal breath sounds Cardiovascular #1: normal peripheral pulses, regular rate, rhythm Gastrointestinal: non tender, soft Musculoskeletal: normal inspection Neurologic: alert, oriented x3 Skin: other - She does have evidence of varicose veins, more specifically in the back of the calf area approximately there is an area that can be palpated with a somewhat tortuous varicose veins mild erythema is noted. This is very superficial in nature otherwise no obvious ankle swelling good pulses distally approximately and appropriate neurovascular exam, Lymphatic: no adenopathy Medical Decision Making Diagnostic Impression: Primary Impression: varicose vein ER Course Given the patient's exam multiple differentials considered Including but not limited to DVT The area however appears to be in line with a superficial varicose vein possible rupture There is mild secondary erythema and the patient was placed on antibiotics prophylactically I do not feel that emergency ultrasonography was required for this clinical evaluation Last Vital Signs Date Time Temp Pulse Resp B/P Pulse Ox O2 Delivery O2 Flow Rate FiO2 03/26/17 09:45 97.7 52 20 117/73 99 Room Air Status: unchanged Disposition: HOME, SELF-CARE Condition: Stable Scripts Cephalexin* (BUSTERFLEX*) 500 Mg Capsule 500 MG ORAL TID for 5 Days, #15 CAP 0 Refills Prov: HARSHA MELTON D.O. 03/26/17 Referrals: [facility],REFERRING (PCP) Patient Instructions: Varicose Veins, Hematoma, [id number] Additional Instructions: Patient is provided with the discharge instructions notified to follow up with primary doctor in the next 2-3 days otherwise return to the er with any worsening symptoms. Please note that this report is being documented using [email or web address] technology. This can lead to erroneous entry secondary to incorrect interpretation by the dictating instrument. HARSHA MELTON D.O. Mar 26, 2017 09:55
== END 2017-03-26 09:45 | disposition home or self-care (01) ==
LOC: EMR 09:37
DX: I83.891 Varicose veins of right lower extremity with other complications (principal)
CPT/HCPCS: 99283